=== PATIENT | male | born 1940 | race Caucasian/White ===

== ENCOUNTER → 2018-03-21 | Outpatient (CLI) | payer MEDICARE, BC ==
--- NOTE | 2018-03-21 12:12 | PCVCIMAG ---
APPROVED REPORT Study performed: 03/21/2018 10:48:48 EXAM: Comprehensive 2D, Doppler, and color-flow Echocardiogram Patient Location: Echo lab Status: routine BSA: 2.08 HR: 80 bpmBP: 162/62 mmHg Rhythm: NSR Other Information Study Quality: Adequate Indications Dyspnea Fatigue peripheral edema 2D Dimensions IVSd: 12.41 (7-11mm)LVOT Diam: 20.84 (18-24mm) LVDd: 46.78 mm PWd: 12.01 (7-11mm) LVDs: 30.60 (25-40mm) Left Atrium: 45.66 (27-40mm) Aortic Root: 29.56 mm LV Single Plane 4CH: 61.52 % LV Single Plane 2CH: 72.73 % Biplane EF: 66.5 % Volumes Left Atrial Volume (Systole) Single Plane 4CH: 123.43 mLSingle Plane 2CH: 115.82 mL LA ESV Index: 58.00 mL/m2 Aortic Valve AoV Peak Kalpesh.: 4.66 m/s AO Peak Gr.: 86.95 mmHgLVOT Max P.30 mmHg AO Mean Gr.: 42.84 mmHgLVOT Mean P.31 mmHg AO V2 Mean: 2.99 m/sLVOT Max V: 1.68 m/s AO V2 VTI: 104.60 cmLVOT Mean V: 1.07 m/s STELLA (VTI): 1.19 [id number] V1 VTI: 36.45 cm STELLA Vmax: 1.23 cm2 SV (LVOT): 124.30 mL Mitral Valve MV Peak Gr.: 13.20 mmHg MV Mean Gr.: 6.08 mmHgE/A Ratio: 1.2 MV Decel. Time: 229.01 ms MV E Max Kalpesh.: 1.67 m/s MV A Kalpesh.: 1.37 m/s MV Max Kalpesh.: 1.81 m/s MV Mean Kalpesh.: 1.16 m/s MV VTI: 508.25 mm MVA VTI: 244.58 mm2 MV PHT: 109.45 ms MVA (PHT): 2.01 cm2 Pulmonary Valve PV Peak Kalpesh.: 1.19 m/sPV Peak Gr.: 5.62 mmHg Pulmonary Vein P Vein S: 0.63 m/s P Vein D: 0.87 m/s P Vein S/D Ratio: 0.72 Tricuspid Valve TR Peak Kalpesh.: 3.46 m/s TR Peak Gr.: 47.84 mmHg Left Ventricle The left ventricle is normal size. There is normal LV segmental wall motion. Mild concentric left ventricular hypertrophy. Left ventricular systolic function is normal. The left ventricular ejection fraction is within the normal range. LVEF is 65%. Grade II - pseudonormal filling dynamics. Right Ventricle The right ventricle is normal size. The right ventricular systolic function is normal. Atria Left atrium is severely dilated. Right atrium is severely dilated. Aortic Valve The aortic valve leaflets are severely calcified. The aortic valve is trileaflet. Elevated, non-obstructive LVOT velocities. Mild aortic regurgitation. There is moderate to severe valvular aortic stenosis. Calculated aortic valve area is 1.2 cm2 with maximum pressure gradient of 87 mmHg and mean pressure gradient of 43 mmHg. Mitral Valve Moderate posterior mitral calcification present. Mild mitral regurgitation. Mild mitral stenosis. Calculated mitral valve area is 2 cm2 with maximum pressure gradient of 13.2 mmHg and mean pressure gradient of 6.1 mmHg. Tricuspid Valve The tricuspid valve is normal in structure. Moderate tricuspid regurgitation with PAP of 58 mmHg. Pulmonic Valve The pulmonary valve is normal in structure. Trace pulmonic regurgitation. Great Vessels The aortic root is normal in size. IVC is dilated and collapses >50% with inspiration. Pericardium There is no pericardial effusion. There is no pleural effusion. <Conclusion> The left ventricle is normal size. LVEF is 65%. Grade II - pseudonormal filling dynamics. The right ventricle is normal size. Left atrium is severely dilated. Right atrium is severely dilated. The aortic valve leaflets are severely calcified. The aortic valve is trileaflet. Elevated, non-obstructive LVOT velocities. Mild aortic regurgitation. There is moderate to severe valvular aortic stenosis. Calculated aortic valve area is 1.2 cm2 with maximum pressure gradient of 87 mmHg and mean pressure gradient of 43 mmHg. Moderate posterior mitral calcification present. Mild mitral regurgitation. Moderate tricuspid regurgitation with PAP of 58 mmHg. The aortic root is normal in size. There is no pericardial effusion.
== END | disposition home or self-care (01) ==
LOC: PCVCIMAG 10:49
PROVIDERS: ATTEND Internal Medicine Cardiovascular Disease
DX: I08.3 Combined rheumatic disorders of mitral, aortic and tricuspid valves (principal); I15.9 Secondary hypertension, unspecified; R53.83 Other fatigue; R06.02 Shortness of breath; R60.0 Localized edema; D53.9 Nutritional anemia, unspecified; I27.20 Pulmonary hypertension, unspecified; E03.9 Hypothyroidism, unspecified; Z82.49 Family history of ischemic heart disease and other diseases of the circulatory system; Z87.891 Personal history of nicotine dependence
CPT/HCPCS: 80061; 93005; 93306; G0463

== ENCOUNTER → 2018-03-31 | Outpatient (CLI) | payer MEDICARE, BC ==
[~2018-03-31] MED LIST: REGADENOSON 0.4 MG/5 ML DISP.SYRIN. IV ONE
--- NOTE | 2018-04-03 11:59 | PCVCIMAG ---
APPROVED REPORT Imaging Protocol: Rest Tc-99m/Stress Tc-99m 1 day Study performed: 03/31/2018 13:10:06 Indication: Dyspnea, Fatigue, Aortic Stenosis Patient Location: Out-Patient Stress Nurse: Ophelia Ramos RN ID Tech:Lynn José Antonio [facility] Ht: 6 ft 1 in Wt: 185 lbs BSA: 2.08 m2 HR: 79 bpm BP: 159/69 mmHg BMI: 24.4 Rhythm: Sinus Rhythm Medical History Medical History: Former Smoker Medications: Levothyroxine, Alfuzosin HCL Allergies: No known drug allergies Cardiac Risk Factors: Age Pretest Chest Pain Characteristics: No chest pain Resting Data Rest SPECT myocardial perfusion imaging was performed in supine position 45 minutes following the intravenous injection of 11.232.9 mCi of Tc-99m Sestamibi. Time of rest injection: 1245 Date: 03/31/2018 Administration Route: IV Administration Site: Right AC Pharmacologic Stress Pharmacologic stress test was performed by injecting Regadenoson 0.4 mg IV push over 10-15 seconds immediately followed by the intravenous injection of 32.9 mCi of Tc-99m Sestamibi. Time of stress injection: 1400 Date: 03/31/2018 Administration Route: IV Administration Site: Right AC Gated Stress SPECT was performed 45 minutes after stress injection. The images were gated to evaluate regional wall motion and calculate left ventricular ejection fraction. Stress Test Details Stress Test: Pharmacologic stress was paired with low level exercise. Reason for pharmacologic stress test: dyspnea. HRMax Heart Rate (APMHR): 142 bpm Resting HR: 79 bpmTarget HR (85% APMHR): 120 bpm Max HR Achieved: 115 bpm % of APMHR: 80 Recovery HR: 80 bpm BP Resting BP: 159/69 mmHg Max BP: 132/60 mmHg Recovery BP: 155/57 mmHg ECG Resting ECG: Sinus Rhythm Stress ECG: Sinus Tachycardia with ST depression ST Change: Downsloping ST depression Maximum ST Deviation: 1.8 mm Arrhythmia: None Recovery ECG: Sinus Rhythm Clinical Reason for Termination: Completed protocol Stress Symptoms: Mild Chest pressure, dsypnea Exercise duration: 4 min 00 sec Symptoms resolved with caffeine. Stress ECG Conclusion ECG: Non-ischemic Study Quality Study: Good Study Data Post stress, the left ventricular ejection was 66%.. SSS: 0 SRS: 0 SDS: 0 TID = 1.00. Perfusion No evidence of stress induced ischemia or prior myocardial infarction. Wall Motion Normal left ventricular size and function with no regional wall motion abnormalities. Nuclear Conclusion No evidence of stress induced ischemia or prior myocardial infarction. Normal left ventricular size and function with no regional wall motion abnormalities. Post stress, the left ventricular ejection was 66%. No prior study available for comparison. Interpreted by: Star Canseco MD Electronically Approved: 03/31/2018 15:52:52 <Conclusion> ECG: Non-ischemic
== END | disposition home or self-care (01) ==
LOC: PCVCIMAG 12:24
PROVIDERS: ATTEND Internal Medicine Cardiovascular Disease
DX: I35.0 Nonrheumatic aortic (valve) stenosis (principal); R06.09 Other forms of dyspnea; R53.83 Other fatigue; Z87.891 Personal history of nicotine dependence
CPT/HCPCS: 78452; 93017; A9500; J2785

== ENCOUNTER → 2018-09-28 | Outpatient (CLI) | payer MEDICARE, BC | END | disposition home or self-care (01) | LOC: PCVCCLINIC 15:00 | PROVIDERS: ATTEND Internal Medicine Cardiovascular Disease | DX: I35.0 Nonrheumatic aortic (valve) stenosis (principal); I25.10 Atherosclerotic heart disease of native coronary artery without angina pectoris; E78.5 Hyperlipidemia, unspecified; I12.9 Hypertensive chronic kidney disease with stage 1 through stage 4 chronic kidney disease, or unspecified chronic kidney disease; N18.9 Chronic kidney disease, unspecified; D63.1 Anemia in chronic kidney disease; D53.9 Nutritional anemia, unspecified; R93.1 Abnormal findings on diagnostic imaging of heart and coronary circulation; Z87.891 Personal history of nicotine dependence | CPT/HCPCS: 36415; 80061; 93005; G0463 ==

== ENCOUNTER → 2019-04-03 | Outpatient (CLI) | payer MEDICARE, BC ==
--- NOTE | 2019-04-03 15:17 | PCVCIMAG ---
APPROVED REPORT Study performed: 04/03/2019 10:06:22 EXAM: Comprehensive 2D, Doppler, and color-flow Echocardiogram Patient Location: Echo lab Status: routine BSA: 2.08 HR: 67 bpmBP: 126/56 mmHg Rhythm: NSR Other Information Study Quality: Adequate Risk Factors: Cardiac Risk Factors: HTN Indications Dyspnea aortic stenosis, mitral stenosis, anemia 2D Dimensions IVSd: 12.16 (7-11mm)LVOT Diam: 20.66 (18-24mm) LVDd: 49.28 mm PWd: 10.98 (7-11mm)Ascending Ao: 33.28 (22-36mm) LVDs: 33.99 (25-40mm) Left Atrium: 45.24 (27-40mm) Aortic Root: 31.57 mm LV Single Plane 4CH: 53.95 % LV Single Plane 2CH: 61.38 % Biplane EF: 57.2 % Volumes Left Atrial Volume (Systole) Single Plane 4CH: 115.47 mLSingle Plane 2CH: 117.75 mL LA ESV Index: 59.00 mL/m2 Aortic Valve AoV Peak Kalpesh.: 5.35 m/s AO Peak Gr.: 114.65 mmHgLVOT Max P.09 mmHg AO Mean Gr.: 55.36 mmHgLVOT Mean P.35 mmHg AO V2 Mean: 3.35 m/sLVOT Max V: 1.42 m/s AO V2 VTI: 122.50 cmLVOT Mean V: 1.00 m/s STELLA (VTI): 0.91 [id number] V1 VTI: 33.39 cm STELLA Vmax: 0.89 cm2 SV (LVOT): 111.93 mL Mitral Valve MV Peak Gr.: 11.75 mmHg MV Mean Gr.: 5.13 mmHgE/A Ratio: 1.2 MV Decel. Time: 333.23 ms MV E Max Kalpesh.: 1.63 m/s MV A Kalpesh.: 1.35 m/s MV Max Kalpesh.: 1.71 m/s MV Mean Kalpesh.: 1.07 m/s MV VTI: 536.68 mm MVA VTI: 208.57 mm2 MV PHT: 106.92 ms MVA (PHT): 2.06 cm2 IVRT: 65.74 ms Pulmonary Valve PV Peak Kalpesh.: 1.38 m/sPV Peak Gr.: 7.64 mmHg Pulmonary Vein P Vein S: 0.46 m/sP Vein A: 0.29 m/s P Vein D: 0.66 m/sP Vein A Dur.: 138.4 msec P Vein S/D Ratio: 0.70 Tricuspid Valve TR Peak Kalpesh.: 3.14 m/s TR Peak Gr.: 39.40 mmHg TV Vmax: 0.53 m/s Left Ventricle The left ventricle is normal size. There is normal LV segmental wall motion. Borderline concentric left ventricular hypertrophy. The left ventricular systolic function is normal. The left ventricular ejection fraction is within the normal range. LVEF is 55-60%. Grade II - pseudonormal filling dynamics. Right Ventricle The right ventricle is normal size. The right ventricular systolic function is normal. Atria Left atrium is severely dilated. Right atrium is moderate-severely dilated. Aortic Valve The aortic valve is severely calcified. The aortic valve is trileaflet. Mild aortic regurgitation. There is severe valvular aortic stenosis. Calculated aortic valve area is .9 cm2 with maximum pressure gradient of 115 mmHg and mean pressure gradient of 55 mmHg. Mitral Valve Mitral valve leaflets are calcified. Mild mitral regurgitation. Mild mitral stenosis. Calculated mitral valve area is 2.1 cm2 with maximum pressure gradient of 11.8 mmHg and mean pressure gradient of 5.1 mmHg. Tricuspid Valve The tricuspid valve is normal in structure. Mild tricuspid regurgitation with PAP of 46 mmHg. Pulmonic Valve The pulmonary valve is normal in structure. Mild pulmonic regurgitation. Great Vessels The aortic root is normal in size. IVC is normal in size and collapses >50% with inspiration. Pericardium There is no pericardial effusion. There is no pleural effusion. <Conclusion> The left ventricle is normal size. Borderline concentric left ventricular hypertrophy. LVEF is 55-60%. Grade II - pseudonormal filling dynamics. The right ventricle is normal size. Left atrium is severely dilated. Right atrium is moderate-severely dilated. The aortic valve is severely calcified. The aortic valve is trileaflet. Mild aortic regurgitation. There is severe valvular aortic stenosis. Calculated aortic valve area is .9 cm2 with maximum pressure gradient of 115 mmHg and mean pressure gradient of 55 mmHg. Mitral valve leaflets are calcified. Mild mitral regurgitation. Mild tricuspid regurgitation with PAP of 46 mmHg. The aortic root is normal in size. There is no pericardial effusion.
== END | disposition home or self-care (01) ==
LOC: PCVCIMAG 11:19
PROVIDERS: ATTEND Internal Medicine Cardiovascular Disease
DX: I08.8 Other rheumatic multiple valve diseases (principal); I13.10 Hypertensive heart and chronic kidney disease without heart failure, with stage 1 through stage 4 chronic kidney disease, or unspecified chronic kidney disease; E78.5 Hyperlipidemia, unspecified; E03.9 Hypothyroidism, unspecified; N18.9 Chronic kidney disease, unspecified; D63.1 Anemia in chronic kidney disease; Z90.49 Acquired absence of other specified parts of digestive tract; Z87.891 Personal history of nicotine dependence; Z79.899 Other long term (current) drug therapy
CPT/HCPCS: 36415; 80061; 93005; 93306; G0463